=== PATIENT | female | born 1985 | race American Indian/Alaskan Native ===

== ENCOUNTER 2021-09-18 21:05 | Emergency (ER) | payer OTHER ==
[2021-09-18 23:19] LABS: BLOOD UREA NITROGEN,BUN 8 mg/dL (7.0-18.0); CARBON DIOXIDE,CO2 24.2 mmol/L (21.0-32.0); CHLORIDE,CL 101 mmol/L (98-107); GLUCOSE RANDOM 136 mg/dL (74-106); LIPASE 216 U/L (73-393); POTASSIUM,K 3.5 mmol/L (3.5-5.1); SODIUM,NA 139 mmol/L (136-145)
[2021-09-19] MEDS ORDERED: Iopamidol 755 MG/ML 500 ML Multipack Bottle IVPUSH STA (00:53)
[2021-09-19] MEDS ORDERED: Acetaminophen/HYDROcodone 325-5 MG Tab PO ONE (01:08)
[2021-09-19] MEDS ORDERED: Levofloxacin 500 MG Tab PO ONE (02:10)
== END 2021-09-19 02:43 | disposition home or self-care (01) ==
LOC: MW.ED 21:05
DX: R06.02 Shortness of breath (principal); Z79.899 Other long term (current) drug therapy; Z20.822 Contact with and (suspected) exposure to COVID-19
CPT/HCPCS: 36415; 71046; 71275; 74177; 80053; 81001; 83690; 83880; 84484; 85025; 85379; 87635; 93005; 99285; A9270; Q9967; 93010; 99284; U0002